=== PATIENT | male | born 1965 | race Caucasian/White ===

== ENCOUNTER → 2022-10-08 14:39 | Outpatient (REF) | payer OTHER, SELFPAY | LOC: WOUND 14:39 | PROVIDERS: ATTENDING PHYSICIAN Surgery; REFERRING PHYSICIAN Nurse Practitioner Family | DX: T24.311A Burn of third degree of right thigh, initial encounter (principal); E11.65 Type 2 diabetes mellitus with hyperglycemia; E11.40 Type 2 diabetes mellitus with diabetic neuropathy, unspecified; I15.2 Hypertension secondary to endocrine disorders; G62.9 Polyneuropathy, unspecified; I65.23 Occlusion and stenosis of bilateral carotid arteries; I10 Essential (primary) hypertension; Z79.4 Long term (current) use of insulin; K86.1 Other chronic pancreatitis; Z95.828 Presence of other vascular implants and grafts | CPT/HCPCS: 97597; 99202; 99214 ==

== ENCOUNTER → 2023-03-25 13:09 | Outpatient (REF) | payer OTHER, SELFPAY | LOC: RAD 13:09 | PROVIDERS: ATTENDING PHYSICIAN Surgery Vascular Surgery; FAMILY PHYSICIAN Family Medicine | DX: I73.9 Peripheral vascular disease, unspecified (principal) | CPT/HCPCS: 93922; 93925 ==

== ENCOUNTER → 2023-09-27 14:35 | Outpatient (REF) | payer OTHER, SELFPAY | LOC: RAD 14:35 | PROVIDERS: ATTENDING PHYSICIAN Surgery Vascular Surgery; FAMILY PHYSICIAN Family Medicine | DX: I73.9 Peripheral vascular disease, unspecified (principal) | CPT/HCPCS: 93922; 93925 ==

== ENCOUNTER → 2023-10-08 10:11 | Outpatient (REF) | payer OTHER, SELFPAY | LOC: RAD 10:11 | PROVIDERS: ATTENDING PHYSICIAN Registered Nurse; FAMILY PHYSICIAN Family Medicine; REFERRING PHYSICIAN Surgery Vascular Surgery | DX: I73.9 Peripheral vascular disease, unspecified (principal) | CPT/HCPCS: 75635; Q9967 ==

== ENCOUNTER → 2024-10-19 13:34 | Outpatient (REF) | payer OTHER, SELFPAY | LOC: RAD 13:34 | PROVIDERS: ATTENDING PHYSICIAN Surgery Vascular Surgery; FAMILY PHYSICIAN Physician Assistant | DX: I73.9 Peripheral vascular disease, unspecified (principal) | CPT/HCPCS: 93922; 93925 ==

== ENCOUNTER 2025-01-16 07:45 | Outpatient (REF) | payer OTHER, SELFPAY | END 2025-01-16 23:59 | disposition home or self-care (01) | LOC: WOUND 07:45 | PROVIDERS: ATTENDING PHYSICIAN Registered Nurse; FAMILY PHYSICIAN Physician Assistant | DX: L97.322 Non-pressure chronic ulcer of left ankle with fat layer exposed (principal); I73.9 Peripheral vascular disease, unspecified; E11.65 Type 2 diabetes mellitus with hyperglycemia; G62.9 Polyneuropathy, unspecified | CPT/HCPCS: 99204 ==

== ENCOUNTER 2025-01-22 07:50 | Outpatient (REF) | payer OTHER, SELFPAY | END 2025-01-22 23:59 | disposition home or self-care (01) | LOC: WOUND 07:50 | PROVIDERS: ATTENDING PHYSICIAN Registered Nurse; FAMILY PHYSICIAN Physician Assistant | DX: L97.322 Non-pressure chronic ulcer of left ankle with fat layer exposed (principal); I73.9 Peripheral vascular disease, unspecified; E11.65 Type 2 diabetes mellitus with hyperglycemia; G62.9 Polyneuropathy, unspecified | CPT/HCPCS: 99213 ==

== ENCOUNTER 2025-01-29 08:43 | Outpatient (REF) | payer OTHER, SELFPAY | END 2025-01-29 23:59 | disposition home or self-care (01) | LOC: WOUND 08:43 | PROVIDERS: ATTENDING PHYSICIAN Registered Nurse; FAMILY PHYSICIAN Physician Assistant | DX: L97.322 Non-pressure chronic ulcer of left ankle with fat layer exposed (principal); I73.9 Peripheral vascular disease, unspecified; E11.65 Type 2 diabetes mellitus with hyperglycemia; G62.9 Polyneuropathy, unspecified | CPT/HCPCS: 97597; 99213 ==

== ENCOUNTER → 2025-01-31 14:02 | Outpatient (REF) | payer OTHER, SELFPAY | LOC: RAD 14:02 | PROVIDERS: ATTENDING PHYSICIAN Surgery Vascular Surgery; FAMILY PHYSICIAN Physician Assistant | DX: I73.9 Peripheral vascular disease, unspecified (principal) | CPT/HCPCS: 75635; Q9967 ==

== ENCOUNTER 2025-02-05 08:44 | Outpatient (REF) | payer OTHER, SELFPAY | END 2025-02-05 23:59 | disposition home or self-care (01) | LOC: WOUND 08:44 | PROVIDERS: ATTENDING PHYSICIAN Registered Nurse | DX: L97.322 Non-pressure chronic ulcer of left ankle with fat layer exposed (principal); I73.9 Peripheral vascular disease, unspecified; E11.65 Type 2 diabetes mellitus with hyperglycemia; G62.9 Polyneuropathy, unspecified | CPT/HCPCS: 97597 ==

== ENCOUNTER 2025-02-13 08:39 | Outpatient (REF) | payer OTHER, SELFPAY | END 2025-02-13 23:59 | disposition home or self-care (01) | LOC: WOUND 08:39 | PROVIDERS: ATTENDING PHYSICIAN Registered Nurse; FAMILY PHYSICIAN Physician Assistant | DX: E11.621 Type 2 diabetes mellitus with foot ulcer (principal); L97.322 Non-pressure chronic ulcer of left ankle with fat layer exposed; E11.51 Type 2 diabetes mellitus with diabetic peripheral angiopathy without gangrene; E11.42 Type 2 diabetes mellitus with diabetic polyneuropathy; E11.65 Type 2 diabetes mellitus with hyperglycemia | CPT/HCPCS: 99213 ==

== ENCOUNTER 2025-02-14 10:37 | Day surgery (SDC) | payer OTHER, SELFPAY ==
[2025-02-14] VITALS (13 sets, daily range): BP systolic 139–204; BP diastolic 69–91; BMI 24.1
[2025-02-14 10:58] LABS: Hematocrit 36.8 % (39.0-52.0); Hemoglobin 12.5 g/dL (13.0-18.0); Mean Corp Hgb Conc. 34.0 g/dL (33.0-37.0); Mean Corpuscular Volume 94.1 fL (80.0-94.0); Platelet Count 227 10^3/uL (130-400); Red Cell Dist. Width 12.3 % (11.5-14.5)
[2025-02-14 11:18] LABS: Blood Urea Nitrogen 11 mg/dl (9-20); Calcium 9.1 mg/dl (8.4-10.2); Carbon Dioxide 31 mmol/L (22-30); Chloride 94 mmol/L (98-107); Glucose 149 mg/dl (70-99); Potassium 6.0 mmol/L (3.5-5.1); Sodium 130 mmol/L (135-145); eGFR > 60.00
[2025-02-14 11:24] LABS: APTT 29.9 Sec (23.4-35.0); INR 0.98; PT 12.8 Sec (11.4-14.6)
[2025-02-14 11:36] LABS: Glucose - Point of Care 112 mg/dl (70-99)
[2025-02-14 12:11] LABS: Blood Urea Nitrogen 10 mg/dl (9-20); Calcium 8.8 mg/dl (8.4-10.2); Carbon Dioxide 26 mmol/L (22-30); Chloride 94 mmol/L (98-107); Estimated Creatinine Clearance 112 ml/min; Glucose 121 mg/dl (70-99); Potassium 4.9 mmol/L (3.5-5.1); Sodium 126 mmol/L (135-145); eGFR > 60.00
--- NOTE | 2025-02-14 14:01 | W.SUR.PREOP ---
Pre-Operative Surgical Note
-
I have examined this patient prior to the performance of the scheduled procedure.
The patient's condition is unchanged from the time of the current History and
Physical and the patient is able to undergo the scheduled procedure.
--- NOTE | 2025-02-14 15:10 | W.SUR.POST ---
Surgical Immediate Post Op
Note
Pre Op Diagnosis: PAD
Post Op Diagnosis: PAD
Procedure Performed: Diagnostic LLE arteriogram
Primary Surgeon: Kermit
Anesthesia: Local and sedation
Estimated Blood Loss: <2cc
Fluids: see anesthesia flow sheet
Drains/Shunts: none
Specimens/Cultures: none
Doppler/Duplex/Angio (Y/N): Y
Complications: none
Operative Findings: Assessed targets for bypass
--- NOTE | 2025-02-14 15:11 | W.[place]-PDMP ---
[place]-PDMP
-
Checked the [place]- Prescription Drug Monitoring Program website, no red flags identified; safe to proceed with prescription.
I ordered 7 days of tramadol and transmitted to pts pharmacy. Will see patient back in hospital in 7 days for surgery
[2025-02-14 15:35] LABS: Glucose - Point of Care 106 mg/dl (70-99)
--- NOTE | 2025-02-14 16:20 | OR.RPT ---
Operative Report
Operative Report
PROCEDURE DATE: 02/14/2025
Preoperative diagnosis:
1. Chronic limb-threatening ischemia left lower extremity.
2. Severe peripheral arterial disease status post extensive revascularizations bilaterally.
Postoperative diagnosis: Same
Procedure:
1. Duplex assisted cannulation of left common femoral artery.
2. Left lower extremity diagnostic arteriogram.
Surgeon: Kermit
Project Estimator: None
Complications: None
Anesthesia: Local, sedation
Fluoroscopy:
2.4 min
13 mGy
4.47 gy.cm2
Indications for procedure:
Chronic limb-threatening ischemia with left foot severely painful ischemic ulceration. Chronic long segment SFA occlusion. History of profunda revascularization. Risk/benefit/alternatives of angiography to identify distal target fully discussed.
Patient understood all wished to proceed.
Description of procedure:
Patient was identified, brought to the operating room. Placed on the table in the supine position. After the adequate administration of anesthesia, the patient was prepped and draped in the standard surgical fashion. A standard preoperative
timeout was undertaken and everybody was in agreement with the plan.
The left common femoral artery was accessed with a micropuncture kit under direct duplex ultrasound guidance. Through the micropuncture sheath, left lower extremity arteriogram was obtained. This demonstrated:
Common femoral artery: Patent slightly bulbous secondary to endarterectomy. Distal aspect of axillary femoral graft/anastomosis patent.
Profunda femoris artery: Patent with mild stenosis proximally, but not severe. Good flow through main profunda and good collateral branches noted.
Superficial femoral artery: Chronically occluded
Popliteal artery: Reconstituted above the knee popliteal artery. However plaque/stenoses diffusely noted. But reasonable flow channel. Below the knee popliteal artery appeared to be reasonable actually with no definitive stenosis.
Anterior tibial artery: Patent with 2-3 areas of mild to moderate stenosis throughout its course. In the proximal third there was some luminal irregularity suggesting calcified atherosclerotic plaque. The mid segment of the anterior tibial
appeared to have the most severe stenosis, but even that appeared less than 50%.
Tibial peroneal trunk: Patent but diffusely small. Short segment artery.
Peroneal artery: Patent proximally, string-like flow. Then occluded about 6 cm beyond the origin.
Posterior tibial artery: Patent throughout its course down to the level of the foot and then occluded. Just beyond the occlusion there was flow through one of the plantar arteries. Note the posterior tibial artery throughout its entire course down
the leg was severely diminutive in size with likely diffuse atherosclerotic plaque and likely diffuse stenosis.
Satisfied with the images that I had obtained, the sheath was then withdrawn and manual pressure applied to the puncture site. Hemostasis was fully achieved. The patient tolerated the procedure well.
The patient tolerated procedure well.
[2025-02-14] MEDS: APRESOLINE 10 MG IV (16:35)
== END 2025-02-14 18:10 | disposition home or self-care (01) ==
LOC: CATH 10:37
PROVIDERS: Nurse Practitioner; ATTENDING PHYSICIAN Surgery Vascular Surgery; PRIMARYCARE PHYSICIAN Physician Assistant
DX: L97.429 Non-pressure chronic ulcer of left heel and midfoot with unspecified severity (principal); I70.244 Atherosclerosis of native arteries of left leg with ulceration of heel and midfoot; E13.51 Other specified diabetes mellitus with diabetic peripheral angiopathy without gangrene; Z79.4 Long term (current) use of insulin; Z96.41 Presence of insulin pump (external) (internal); Z79.899 Other long term (current) drug therapy; Z79.01 Long term (current) use of anticoagulants; Z88.6 Allergy status to analgesic agent; Z91.030 Bee allergy status
CPT/HCPCS: 36140; 75710; 80048; 82962; 85027; 85610; 85730; 86850; 86900; 86901; 93005; Q9967